=== PATIENT | female | born 1995 | race Caucasian/White ===

== ENCOUNTER 2025-05-16 12:17 | Outpatient (CLI) | payer MEDICAID, SELFPAY ==
--- OUTSIDE RECORDS SUMMARY | 2025-05-16 12:22 | XMS_ITS | Clinical Summary ---
[facility] Address [address] [place] [address] Care Team Providers Care Director Telehealth Name Role Phone Provider, No Known Primary Care Provider Unavail able Allergies No known active allergies Medications albuterol sulfate HFA 108 (90 Base) MCG/ACT inhalerIndicati ons:Acute viral syndrome Inhale 2 puffs Every 4 (Four) Hours As Needed for Wheezing or Shortness of Air. 18 g Active Active Problems No known active problems Family History Medical History Relation Name Comments No Known Problems Father No Known Problems Mother Relation Name Status Comments Father Alive Mother Alive Social History Tobacco Use Types Packs/Day Years Used Date Smoking Tobacco: Never Smokeless Tobacco: Never Tobacco Cessation:Counseling Given: No Alcohol Use Standard Drinks/Week Comments Yes 0 (1 standard drink = 0.6 oz pur e alcohol) socially AUDIT-C Answer Date Recorded Frequency of Alcohol Consumption Never 10/06/2018 Average Number of Drinks Not on file 019 Frequency of Binge Drinking Not on file 09/11 Abuse Screen Answer Date Recorded Unsafe at Home or Work/School Not on file Feels Threatened by Someone? Not on file Does Anyone Keep You from Co ntacting Others or Doint Things Outside the Home? Not on file 11/24/2023 Physical Sign of Abuse Present Not on file 0 11/24/2023 Housing Stability Answer Date Recorded Current Living Arrangements Not on file 02/2023 Potentially Unsafe Housing Conditions Not on haris e 03/20/2023 Family and Community Support Answer Chriss e Recorded Help with Day-to-Day Activities Not on file 03/20/2023 Lonely or Isolated Not on file 03/20/2023 Employment Answer Date Recorded Do you want help finding or keeping work or a gayla b? Not on file 03/20/2023 Disabilities Answer Date Recorded Concentrating, Remembering, or Making Decisions Difficulty Not on file 03/20/2023 Doing Errands Independently Difficulty Not on fi le 03/20/2023 Education Answer Date Recorded Help with school or training? Not on file Preferred Language Not on file 03/20/2023 Comments No Sex and Gender Information Value Date Recorded Sex Assigned at Not on file Legal Sex Female 11:07 AM EDT Gender Identity Not on file Sexual Orientation Not on file Last Filed Vital Signs Vital Sign Reading Time Taken Comments Blood Pressure 104/72 10/14/2023 10:19 PM EDT Pulse 101 10/14/2023 10:19 PM EDT Temperature 36.8 C (98.2 F) 10/14/2023 10:19 PM EDT Respiratory Rate 18 10/14/2023 10:19 PM EDT Oxygen Saturation 99% 10/14/2023 10:19 PM EDT Inhaled Oxygen Concentration - - Weight 56.7 kg (125 lb) 10/14/2023 10:19 PM EDT Height 160 cm (5' 3 ) 10/14/2023 10:19 PM EDT Body Mass Index 22.14 10/14/2023 10:19 PM EDT Plan of Treatment Health Maintenance Due Date Last Done Comments Annual Gynecologic Pelvic an d Breast Exam 1997 TDAP/TD VACCINES (1 - Tdap) 2016 ANNUAL PHYSICAL 08/06/2017 HEPATITIS C SCREENING 08/06/2017 INFLUENZA VACCINE 01/10/2025 09/04/2017 CHLAMYDIA SCREENING Discontinued 01/02/2022 Pneumococcal Vaccine 0-49 Aged Out No longer eligible based on patient's age to complete this topic Procedures Procedure Name Priority Date/Time Associated Diagnosis Comments CHLAMYDIA TRACHOMATIS, NEISSERIA GONORRHOEAE, PCR STAT 01/02/2022 11:43 PM EDT from Last 3 Months or Most Recently Relevant to Health Maintenance Results * Chlamydia trachomatis, Neisseria gonorrhoeae, PCR - Swab, Cervix (01/02/2022 11:43 PM EDT) Chlamydia trachomatis, MATT Negative Negative 01/05/2022 7:09 AM EDT [facility] Neisseria gonorrhoeae, MATT Negative Negative 01/05/2022 7:09 AM EDT [facility] Swab Cervix uteri structure / Unknown Collection / Unknown 01/02/2022 11:43 PM EDT 01/03/2022 12:12 AM EDT Narrative [facility] - 01/05/2022 7:09 AM EDT Performed at: 01 - Lab[address] [place] [id number] Economics Analyst: Keri Kapadia MD, Phone: [phone] Ignacio Torers Jr., MADDY MICROBIOLOGY - GENERA L ORDERABLES Final Result [facility] [address] [place] [address], [place] [phone] from Last 3 Months or Most Recently Relevant to Health Maintenance Insurance [facility] Care Teams Director Telehealth Relationship Specialty Start Date End Date Provider, No Known [facility] [place] [address] PCP - General 08/18/23
--- OUTSIDE RECORDS SUMMARY | 2025-05-16 12:22 | XMS_ITS | Clinical Summary ---
Author Organization [employer] ([place], [place], [place], [place], [place]) Address [address] [place] [address] Care Team Providers Care Esthetician/Spa Coordinator Name Role Phone Mabel Owens MD Primary Care Provider [phone] Allergies No known active allergies Medications lamoTRIgine (LaMICtal) 150 MG tablet Take 1 tablet (150 mg total) by mouth daily. Active Vyvanse 10 mg cap capsule Take 1 capsule (10 mg total) by mouth every morning. 03/25/2024 Active omeprazole (PriLOSEC) 20 MG capsule Take 1 capsule (20 mg total) by mouth daily. 03/20/2024 Active FLUoxetine (PROzac) 40 MG capsule Take 1 capsule (40 mg total) by mouth daily. 03/20/2024 Active Nextstellis 3 mg- 14.2 mg (28) tab Take 1 tablet by mouth daily. 03/25/2024 Active magnesium L-lactate (MAGTAB) 84 mg TbER Take 1 tablet (84 mg total) by mouth daily. Active azithromycin (ZITHROMAX) 250 MG tablet Take 2 on day one, take 1 on day two through 5. 6 tablet 04/02/2024 Active Active Problems Problem Noted Date Diagnosed Date Endometriosis of pelvic peritoneum 10/18/2022 Menorrhagia 10/18/2022 Severe dysmenorrhea 10/18/2022 Dyspareunia, female 10/18/2022 Pelvic pain in female 10/18/2022 Social History Tobacco Use Types Packs/Day Years Used Date Smoking Tobacco: Never Smokeless Tobacco: Never Tobacco Cessation:Counseling Given: Not Answered Comments:Vape in past Alcohol Use Standard Drinks/Week Comments Yes 2 (1 standard drink = 0.6 oz pur e alcohol) Food Insecurity Answer Date Recorded Food run out past 12 months Not on file 06/13 Food did not last past 12 months Not on file 07/01/2023 Employment Answer Date Recorded Help finding and keeping a job Not on file 0 07/01/2023 Family and Community Support Answer Chriss e Recorded Help with Day to Day Activities Not on file 07/01/2023 Feeling Lonely or Isolated Not on file 07/01 Educational Attainment Answer Date Rocky rded Speak language other than Persian at home Not on file 07/01/2023 Want help with school or training Not on file 07/01/2023 Substance Use Answer Date Recorded Used prescription meds for non-medical reasons N ot on file 07/01/2023 Used illegal drugs past 12 months Not on file 07/01/2023 Comments No Sex and Gender Information Value Date Recorded Sex Assigned at Not on file Legal Sex Female 1:44 PM CDT Gender Identity Not on file Sexual Orientation Not on file Last Filed Vital Signs Vital Sign Reading Time Taken Comments Blood Pressure 100/66 04/02/2024 1:13 PM EDT Pulse 85 04/02/2024 1:13 PM EDT Temperature 37 C (98.6 F) 04/02/2024 1:13 PM EDT Respiratory Rate 14 04/02/2024 1:13 PM EDT Oxygen Saturation 99% 04/02/2024 1:13 PM EDT Inhaled Oxygen Concentration - - Weight 63.5 kg (140 lb) 04/02/2024 1:13 PM EDT Height 157.5 cm (5' 2 ) 04/02/2024 1:13 PM EDT Body Mass Index 25.61 04/02/2024 1:13 PM EDT Plan of Treatment Health Maintenance Due Date Last Done Comments Depression Screening (12+) 2009 HIV Screening 2012 Hepatitis C Screening 2015 DTAP/TDAP/TD VACCINES (2 - Tdap) 2016 05/08/20 Pap Smear 2018 COVID-19 VACCINE (1 - 2023-2 5 season) 2025 Influenza Vaccine (#1) 2025 Tobacco Cessation Counseling and Screening (12+) 04/02/2025 04/02/2024 Pneumococcal Vaccine: 0-49 Years Aged Out No longer eligible based on patient's age to complete this topic Medical Devices Implanted Type Area Visual Educator Device Identifier Shelf Expiration Date Model / Serial / Lot Grafix Pl Prime 3x4 Cm [id number] - [id number] Implanted:Qty : 1 on 10/19/2022 by Tracie Jolly MD at [facility] IMPLANTS N/A: Pelvis [employer] 04/01/2024 [id number] / [id number] Insurance AETNA [facility] Advance Directives For more information, please contact: [phone] * Full Code (Latest Code Status on File) Date Activated Date Inactivated Comments 10/19/2022 9:55 AM 10/19/2022 4:10 PM * Full Code Date Activated Date Inactivated Comments 10/19/2022 8:22 AM 10/19/2022 9:55 AM Care Teams Esthetician/Spa Coordinator Relationship Specialty Start Date End Date Mabel Owens MD [address] [place] [id number] PCP - General Family Medicine 10/14/22
--- OUTSIDE RECORDS SUMMARY | 2025-05-16 12:22 | XMS_ITS | Referral Summary ---
Author Organization [employer] ([place], [place], [place], [place], [place]) Address [address] [place] [address] Care Team Providers Care Ultrasound Manager Name Role Phone Mabel Owens MD Primary Care Provider [phone] Allergies No known active allergies Medications lamoTRIgine [...] Date Rocky rded Speak language other than Italian at home Not on file 07/01/2023 Want [...] 04/02/2024 1:13 PM EDT Plan of Treatment Not on file Medical Devices Implanted Type Area Seed Mill Superintendent Device Identifier Shelf Expiration Date Model / Serial / Lot Grafix Pl Prime 3x4 Cm [id number] - [id number] Implanted:Qty : 1 on 10/19/2022 by Tracie Jolly MD at [facility] IMPLANTS N/A: Pelvis [employer] 04/01/2024 [id number] / [id number] Insurance AETNA [facility] Advance Directives For more information, please contact: [phone] * Full Code (Latest Code Status on File) Date Activated Date Inactivated Comments 10/19/2022 9:55 AM 10/19/2022 4:10 PM * Full Code Date Activated Date Inactivated Comments 10/19/2022 8:22 AM 10/19/2022 9:55 AM Care Teams Ultrasound Manager Relationship Specialty Start Date End Date Mabel Owens MD [address] [phone] PCP - General Family Medicine 10/14/22
--- OUTSIDE RECORDS SUMMARY | 2025-05-16 12:22 | XMS_ITS | Clinical Summary ---
Author Organization [facility] Address [address] [place] [address] Care Team Providers Care Rivet Tapping Machine Operator Name Role Phone Rambo Jean MD Primary Care Provider [phone] Immunizations Immunization Administration Dates Next Due Influenza, Unspecified 09/04/2017 Social History Tobacco Use Types Packs/Day Years Used Date Smoking Tobacco: Never Assessed Comments Unknown Sex and Gender Information Value Date Recorded Sex Assigned at Not on file Legal Sex Female 8:13 PM EDT Gender Identity Not on file Sexual Orientation Not on file Plan of Treatment Health Maintenance Due Date Last Done Comments [facility]-Depression Screening 1997 [facility]-/Child/Adol SDOH Screenings 1997 [facility]-Varicella Vaccines (1 of 2 - 13+ 2-dose series) 2010 [facility]- SDOH Screenings 2015 [facility]Y-Adult SDOH Screenings 2015 [facility]-DTaP,Tdap,and Td Vaccine s (1 - Tdap) 2016 [facility]-Hepatitis B Vaccines (1 of 3 - 19+ 3-dose series) 2016 [facility]-Pap Smear 2018 HPV Vaccines (1 - 3-dose SCD M series) 2024 [id number] Vaccine (1 - 20 25-26 season) 2025 [facility]-Influenza Vaccine (#1) 2025 09/04/2017 UKY-Zoster Vaccines (1 of 2) 2047 UKY-HIB Vaccines Aged Out No longer e ligible based on patient's age to complete this topic [facility]-Hepatitis A Vaccines Aged Out No longer eligible based on patient's age to complete this topic UKY-IPV Vaccines Aged Out No longer e ligible based on patient's age to complete this topic UKY-Pneumococcal Vaccine: Pediatrics (0 to 5 Years) and At-Risk Patients (6 to 49 Years) Aged Out No long er eligible based on patient's age to complete this topic [facility]Y-Rotavirus Vaccines Aged Out No lo nger eligible based on patient's age to complete this topic Care Teams Rivet Tapping Machine Operator Relationship Specialty Start Date End Date Rambo Jean MD [address] [place] [address] [place] [address] PCP - General 10/23/20
== END 2025-05-16 23:59 | disposition home or self-care (01) ==
LOC: LAB 12:21
PROVIDERS: PCP Family Medicine Geriatric Medicine; Visit Provider Nurse Practitioner Obstetrics & Gynecology
DX: Z34.90 Encounter for supervision of normal pregnancy, unspecified, unspecified trimester (principal); Z3A.00 Weeks of gestation of pregnancy not specified
CPT/HCPCS: 36415; 84144; 84702

== ENCOUNTER 2025-05-21 15:24 | Emergency (ER) | payer MEDICAID, SELFPAY ==
[2025-05-21 16:24] VITALS: BP 98/42; PULSE 88; RESP 16; TEMP 36.8; O2SAT 100; BMI 23.3
[2025-05-21 16:35] LABS: Microscopic, Urine URINE MICROSCOPIC (MICROSCOPIC)
[2025-05-21 16:41] LABS: Bilirubin,Urine Negative (Negative); Color,Urine YELLOW (Yellow); Glucose,Urine (UA) Negative (Negative); Ketones,Urine Negative (Negative); Leukocyte Esterase,Urine Negative (Negative); PH,Urine 6.0 (5.0-8.5); Protein,Urine Negative (Negative); Specific Gravity, Urine >= 1.030 (1.005-1.030); Urobilinogen,Urine 0.2 EU/dl (0.2)
--- NOTE | 2025-05-21 16:45 | US_ITS ---
PROCEDURE INFORMATION: Exam: US , Transvaginal Exam date and time: 05/21/2025 5:24 PM Age: 30 years old Clinical indication: Lmp or gestational age (in weeks): 6w3d; Other: Spotting; ; Additional info: Bleeding TECHNIQUE: Imaging protocol: Real-time transvaginal obstetrical ultrasound of the maternal pelvis with image documentation. Transvaginal imaging was used for better evaluation of the fetus, adnexa, and/or cervix. COMPARISON: No relevant prior studies available. FINDINGS: Gestation: Intrauterine gestation. heart rate: cardiac activity is present at 109 bpm. Placenta: Small subchorionic hemorrhage. BIOMETRY: [place] rump length (CRL): By crown-rump length, estimated gestational age is 6 weeks +3 days. MATERNAL: Right ovary/adnexa: The right ovary was not identified. Vasculature: Unremarkable left ovarian venous waveforms. IMPRESSION: 1. Small subchorionic hemorrhage. 2. Intrauterine with cardiac activity.
[2025-05-21 16:47] LABS: Hematocrit 39.2 % (37.0-47.0); Hemoglobin 13.0 g/dL (12.2-16.2); Immature Granulocytes % 0.3 %; Mean Corpuscular HGB Conc 33.2 g/dL (31.8-35.4); Mean Corpuscular Hemoglobin 29.1 pg (27.0-31.2); Mean Corpuscular Volume 87.9 fl (81-99); Nucleated Red Blood Cells % 0 %; Platelet Count 237 K/mm3 (142-424); Red Blood Count 4.46 M/mm3 (4.20-5.40); Red Cell Distribution Width-SD 41.3 fL; White Blood Count 6.6 K/mm3 (4.8-10.8)
[2025-05-21 17:07] LABS: Chloride 104 mmol/L (98-107)
[2025-05-21 17:08] LABS: Albumin Level 4.5 g/dl (3.5-5.0); Potassium 3.8 mmoL/L (3.5-5.1); Sodium 140 mmol/L (136-145)
[2025-05-21 17:10] LABS: Blood Urea Nitrogen 11 mg/dl (7-17); Creatinine Clearance Estimated 154 mL/min (50-200); Creatinine,Serum 0.50 mg/dl (0.52-1.04); Estimated Glomerular Filt Rate 147 ml/min (>60); GFR (African American) 178 ML/MIN (>60)
[2025-05-21 17:11] LABS: Alanine Aminotransferase 40 U/L (12-78); Albumin/Globulin Ratio 1.5 (1.1-1.8); Alkaline Phosphatase 64 U/L (38-126); Anion Gap 13.8 mEq/L (5-15); Aspartate Amino Transferase 46 U/L (14-36); Bilirubin,Total 0.7 mg/dl (0.2-1.3); Calcium 8.7 mg/dl (8.4-10.2); Carbon Dioxide 26 mmol/L (22.0-30.0); Globulin 3.1 g/dL (1.3-3.2); Total Protein,Serum 7.6 g/dl (6.3-8.2)
[2025-05-21 17:14] LABS: Glucose 46 mg/dl (74-100)
--- NOTE | 2025-05-21 17:19 | PC.NURSE ---
blood glucose 46 reported to
[2025-05-21 17:21] LABS: Bacteria,Urine 1+ /lpf; Squamous Epithelial Cell,Urine Occasional #/hpf (0-5)
--- NOTE | 2025-05-21 17:28 | PC.NURSE ---
i gave pt some food to eat due to hypoglycemia,
--- NOTE | 2025-05-21 18:04 | PC.NURSE ---
FSBS 119
--- NOTE | 2025-05-21 19:03 | HMH.EDGENADL ---
Discharge Plan Disposition Patient Disposition: Home, Self-Care Condition: Good Referrals Follow up/Referrals: Mabel Owens MD [Primary Care Provider, Medical] - See instructions Activity Restrictions/Add. Instructions Additional Instructions/Restrictions: Please follow up with OBGYN within 1 week. If your bleeding worsens and you have to start using pads/tampons, or you develop abdominal pain, fevers, or any other new or worsening symptoms please return. Clinical Impressions Clinical Impression: First trimester bleeding Subchorionic hemorrhage Qualifiers: Trimester: first trimester Qualified Code(s): O20.8 - Other hemorrhage in early Instructions Patient Instructions: DI for Urinary Tract Infection (UTI), DI for Urinary Tract Infection in Children Print Language Print Language: Kuwaiti Discharge ED Provider: Reji Heredia Adult HPI General Chief complaint: Urogenital-Female Stated complaint: 6 weeks spotting Time Seen by Provider: 05/21/25 16:37 Mode of Arrival: Ambulatory Source of Information: Patient Description of Symptoms (Recalled from ER Triage Doc. by RN): pt approx 6 weeks . started spotting this morning. was pink and now its dark brown. just when she wipes. had labs done on 05/15 History of Present Illness HPI narrative: This is a 30-year-old female patient who is presenting to the emergency department today for evaluation of first trimester bleeding. She states the bleeding began this morning upon waking. Initially this was described as light red spotting but now it is characterized as brown in color. She has had some mild abdominal cramping and bloating. She has not saturated any tampons or pads. She states the bleeding is only present when she wipes. She has established care with an CLINICAL APPEALS RN and is scheduled to see them in clinic again this upcoming week. Related Data Allergies Allergy/AdvReac Type Severity Reaction Status Date / Time No Known Allergies Allergy Verified 05/12/25 13:40 [facility] Disclaimer: The information contained in this section may have been updated after the patient was seen, as this information can be updated by other users. Social History Smoking Status: Never smoker alcohol intake: never current occupational status: employed Travel in the last 8 weeks?: None ROS Obtained: Yes Systems reviewed as appropriate & no additional complaints except as documented Physical Exam General General appearance: other (See MDM) Respiratory Respiratory exam: Present other (See MDM) Cardiovascular Cardiovascular exam: Present other (See MDM) Neurological Exam Neurological exam: Present other (See MDM) Medical Decision Making Medical Records Medical records reviewed: Yes I reviewed the patient's medical records. Screening: Per USPSTF and CDC recommendations, given the prevalence of disease in our region, it is our hospital?s policy to screen for HIV and viral Hepatitis for all patients aged 18 and over and those with ongoing risk factors. Dylan Inquiry Pt receiving controlled substance: No Dylan was queried for this patient: No Vital Signs: 05/21/25 16:24 Temperature 98.2 F Temperature Source Oral Pulse Rate [Right] 88 Respiratory Rate 16 Blood Pressure [Right Arm] 98/42 L Blood Pressure Mean [Right Arm] 60 02 Sat by Pulse Oximetry 100 Oxygen Delivery Method Room Air Lab Data Lab Results 05/21/25 16:30: Urine Color Yellow, Urine Appearance Clear, Urine pH 6.0, Ur Specific [place] >= 1.030, Urine Protein Negative, Urine Glucose (UA) Negative, Urine Ketones Negative, Urine Blood Trace-i, Urine Nitrate Negative, Urine Bilirubin Negative, Urine Urobilinogen 0.2, Ur Leukocyte Esterase Negative, Urine RBC None, Urine WBC 3-5, Ur Squamous Epith Cells Occasional, Urine Bacteria 1+ 05/21/25 16:32: WBC 6.6, RBC 4.46, Hgb 13.0, Hct 39.2, MCV 87.9, MCH 29.1, MCHC 33.2, RDW 12.8, Plt Count 237, MPV 10.1, Neut % (Auto) 66.2, Lymph % (Auto) 26.8, Lamb % (Auto) 5.6, Eos % (Auto) 0.8, Baso % (Auto) 0.3, Neut # (Auto) 4.4, Lymph # (Auto) 1.8, Lamb # (Auto) 0.4, Eos # (Auto) 0.1, Baso # (Auto) 0.0, Sodium 140, Potassium 3.8, Chloride 104, Carbon Dioxide 26, Anion Gap 13.8, BUN 11, Creatinine 0.50 L, Estimated Creat Clear 154, Estimated GFR 147, Est GFR ( Amer) 178, Glucose 46 L*, Calcium 8.7, Total Bilirubin 0.7, AST 46 H, ALT 40, Alkaline Phosphatase 64, Total Protein 7.6, Albumin 4.5, Globulin 3.1, Albumin/Globulin Ratio 1.5, HCG, Quant 35620 H 05/21/25 16:52: Blood Type O Positive 05/21/25 16:32 05/21/25 16:32 Orders (Tests/Meds): ORDERS Category Date Time Status Type and Screen Stat BBK 05/21/25 16:52 Results Complete Blood Count Auto Diff Stat Lab 05/21/25 16:32 Completed Comprehensive Metabolic Panel Stat Lab 05/21/25 16:32 Completed HCG,Quantitative Stat Lab 05/21/25 16:32 Completed Urinalysis-Acute [Urinalysis and Microscopic] Stat Lab 05/21/25 16:30 Completed US OB transvaginal Stat Ultrasound 05/21/25 16:45 Completed Medical Decision Narrative: In summary, this a 30-year-old female patient who is presenting to the emergency department today for evaluation of first trimester bleeding with abdominal cramping. Patient does not have any comorbidities that complicate her medical management or care. On initial evaluation of the patient they were resting comfortably in no acute distress and nontoxic in appearance. They are hemodynamically stable, saturating well room air, and are neurologically intact. On physical examination the patient has no abdominal tenderness to palpation. Differential diagnose include subchorionic hemorrhage, spontaneous , anemia, coagulopathy, among others Workup was initiated with hematologic labs as well as a quantitative hCG, urinalysis, and type and screen. We will also perform a transvaginal ultrasound. Labs were personally turbid by me and demonstrate no evidence of anemia. No leukocytosis. No electrolyte derangement acute kidney injury. The patient does have relative hypoglycemia that occurred after needlestick. We treated her with food and she did feel recovered. Aside from this, her hCG has increased appropriately from 05/16/2025 from 15,000 35,000. There is no evidence of urinary tract infection Transvaginal ultrasound shows an intrauterine with cardiac activity as well as a small subchorionic hemorrhage. This is likely the cause of her first administered bleeding. I asked that she follow-up with CLINICAL APPEALS RN within the next week and she currently has AN appointment scheduled for this. I have also asked her to return to the emergency department if she experiences worsening bleeding, saturation of pads or tampons, fevers, or any other new or worsening symptoms. This time all questions have been answered and all parties are agreeable with the decision to discharge home Critical Care Critical Care Time Critical Care Time: No
[2025-05-21 19:30] VITALS: BP 100/60; PULSE 88; RESP 20; TEMP 36.7; O2SAT 98
== END 2025-05-21 19:31 | disposition home or self-care (01) ==
PROVIDERS: Physician Assistant; Emergency Provider Student in an Organized Health Care Education/Training Program; PCP Family Medicine Geriatric Medicine
DX: O20.8 Other hemorrhage in early pregnancy (principal); O99.810 Abnormal glucose complicating pregnancy; E16.2 Hypoglycemia, unspecified; Z3A.01 Less than 8 weeks gestation of pregnancy
CPT/HCPCS: 36415; 76817; 80053; 81001; 84702; 85025; 86850; 99283; 99284

== ENCOUNTER 2025-05-28 10:00 | Outpatient (CLI) | payer MEDICAID, SELFPAY ==
[2025-05-28 10:24] LABS: Hematocrit 34.6 % (37.0-47.0); Hemoglobin 11.6 g/dL (12.2-16.2); Immature Granulocytes % 0.2 %; Mean Corpuscular HGB Conc 33.5 g/dL (31.8-35.4); Mean Corpuscular Hemoglobin 29.1 pg (27.0-31.2); Mean Corpuscular Volume 86.9 fl (81-99); Nucleated Red Blood Cells % 0 %; Platelet Count 216 K/mm3 (142-424); Red Blood Count 3.98 M/mm3 (4.20-5.40); Red Cell Distribution Width-SD 40.9 fL; White Blood Count 8.0 K/mm3 (4.8-10.8)
[2025-05-28 10:55] LABS: RPR W/RFX Titers Nonreactive (Nonreactive)
[2025-05-28 11:50] LABS: Hepatitis C Ab Qual. W/ RFX NEGATIVE (Negative)
--- OUTSIDE RECORDS SUMMARY | 2025-05-28 11:53 | XMS_ITS | Clinical Summary ---
[facility] Address [address] [place] [address] Care Team Providers Care Manager Photo Name Role Phone Provider, No Known Primary [...] 7:09 AM EDT Performed at: 01 - Lab[address] [id number] Security Installation Technician: Keri Kapadia MD, Phone: [phone] Ignacio Torres Jr., MADDY MICROBIOLOGY - GENERA L ORDERABLES Final Result [facility] [address] [place] [address], [place] [phone] from Last 3 Months or Most Recently Relevant to Health Maintenance Insurance [facility] Care Teams Manager Photo Relationship Specialty Start Date End Date Provider, No Known [facility] [place] [address] PCP - General 08/18/23
--- OUTSIDE RECORDS SUMMARY | 2025-05-28 11:53 | XMS_ITS | Clinical Summary ---
Author Organization [employer] ([place], [place], [place], [place], [place]) Address [address] [place] [address] Care Team Providers Care Binder Stripper Machine Name Role Phone Mabel Owens MD Primary Care Provider [phone] Allergies No known active allergies Medications lamoTRIgine [...] Date Rocky rded Speak language other than Brazilian at home Not on file 07/01/2023 Want [...] this topic Medical Devices Implanted Type Area Coconut Cooker Device Identifier Shelf Expiration Date Model / Serial / Lot Grafix Pl Prime 3x4 Cm [id number] - [id number] Implanted:Qty : 1 on 10/19/2022 by Tracie Jolly MD at [facility] IMPLANTS N/A: Pelvis [employer] 04/01/2024 [id number] / [id number] Insurance AETNA [facility] Advance Directives For more information, please contact: [phone] * Full Code (Latest Code Status on File) Date Activated Date Inactivated Comments 10/19/2022 9:55 AM 10/19/2022 4:10 PM * Full Code Date Activated Date Inactivated Comments 10/19/2022 8:22 AM 10/19/2022 9:55 AM Care Teams Binder Stripper Machine Relationship Specialty Start Date End Date Mabel Owens MD [address] [place] [phone] PCP - General Family Medicine 10/14/22
--- OUTSIDE RECORDS SUMMARY | 2025-05-28 11:53 | XMS_ITS | Referral Summary ---
Author Organization [employer] ([place], [place], [place], [place], [place]) Address [address] [place] [address] Care Team Providers Care Re Etcher Name Role Phone Mabel Owens MD Primary Care Provider [phone] Allergies No known active allergies Medications lamoTRIgine [...] Date Rocky rded Speak language other than Northern Irish at home Not on file 07/01/2023 Want [...] on file Medical Devices Implanted Type Area Welding Machine Operator Electron Beam Device Identifier Shelf Expiration Date Model / Serial / Lot Grafix Pl Prime 3x4 Cm [id number] Implanted:Qty : 1 on 10/19/2022 by Tracie Jolly MD at [facility] IMPLANTS N/A: Pelvis [employer] 04/01/2024 [id number] / [id number] Insurance AETNA [facility] Advance Directives For more information, please contact: [phone] * Full Code (Latest Code Status on File) Date Activated Date Inactivated Comments 10/19/2022 9:55 AM 10/19/2022 4:10 PM * Full Code Date Activated Date Inactivated Comments 10/19/2022 8:22 AM 10/19/2022 9:55 AM Care Teams Re Etcher Relationship Specialty Start Date End Date Mabel Owens MD [address] [phone] PCP - General Family Medicine 10/14/22
--- OUTSIDE RECORDS SUMMARY | 2025-05-28 11:53 | XMS_ITS | Clinical Summary ---
Author Organization [facility] Address [address] [place] [address] Care Team Providers Care Rn Postpartum Name Role Phone Rambo Jean MD Primary Care Provider [phone] Immunizations Immunization Administration Dates Next Due Influenza, [...] 19+ 3-dose series) 2016 [facility]-Pap Smear 2018 [id number] Vaccine (1 - 20 25-26 season) 2025 [facility]-Influenza Vaccine (#1) 2025 09/04/2017 [facility]-Zoster Vaccines (1 of 2) 2047 HPV Vaccines (No Doses Required) Completed [facility]-HIB Vaccines Aged Out No longer e [...] age to complete this topic Care Teams Rn Postpartum Relationship Specialty Start Date End Date Rambo Jean MD [address] [place] [address] [place] [address] PCP - General 10/23/20
[2025-05-29 03:48] LABS: Hepatitis B Surface Antigen Negative (Negative)
[2025-05-29 06:15] LABS: Rubella Antibodies, IgG <0.90 index (Immune >0.99)
== END 2025-05-28 23:59 | disposition home or self-care (01) ==
LOC: LAB 10:01
PROVIDERS: PCP Family Medicine Geriatric Medicine; Visit Provider Nurse Practitioner Obstetrics & Gynecology
DX: O20.8 Other hemorrhage in early pregnancy (principal); Z3A.00 Weeks of gestation of pregnancy not specified
CPT/HCPCS: 36415; 85025; 86592; 86762; 86787; 86803; 86850; 87340; 87389

== ENCOUNTER 2025-06-09 13:48 | Outpatient (CLI) | payer MEDICAID, SELFPAY ==
--- OUTSIDE RECORDS SUMMARY | 2025-06-09 13:50 | XMS_ITS | Clinical Summary ---
Author Organization Healthcare Address [address] [place] [address] Care Team Providers Care Barman Name Role Phone Rambo Jean MD Primary Care Provider [phone] Immunizations Immunization Administration Dates Next Due Influenza, [...] 19+ 3-dose series) 2016 UKY-Pap Smear 2018 [id number] Vaccine (1 - 20 25-26 season) 2025 [...] age to complete this topic Care Teams Barman Relationship Specialty [place] [id number] PCP - General 10/23/20
--- OUTSIDE RECORDS SUMMARY | 2025-06-09 13:50 | XMS_ITS | Clinical Summary ---
Author Organization [facility] Address [address] [place] [address] Care Team Providers Care Mis Manager Name Role Phone Provider, No Known Primary [...] 7:09 AM EDT Performed at: 01 - [facility] [place] [id number] Vault Person: Keri Kapadia MD, Phone: [phone] Ignacio Torres Jr., MADDY MICROBIOLOGY - GENERA L ORDERABLES Final Result [facility] [address] [place] [address], [place] [phone] from Last 3 Months or Most Recently Relevant to Health Maintenance Insurance [facility] Care Teams Mis Manager Relationship Specialty Start Date End Date Provider, No Known [facility] [place] [address] PCP - General 08/18/23
--- OUTSIDE RECORDS SUMMARY | 2025-06-09 13:50 | XMS_ITS | Referral Summary ---
Author Organization [employer] ([place], [place], [place], [place], [place]) Address [address] [place] [address] Care Team Providers Care Plycor Operator Name Role Phone Mabel Owens MD Primary Care Provider [phone] Allergies No known active allergies Medications lamoTRIgine [...] Date Rocky rded Speak language other than Filipino at home Not on file 07/01/2023 Want [...] on file Medical Devices Implanted Type Area Non Garment Sewing Machine Operator Device Identifier Shelf Expiration Date Model / Serial / Lot Grafix Pl Prime 3x4 Cm [id number] Implanted:Qty : 1 on 10/19/2022 by Tracie Jolly MD at [facility] IMPLANTS N/A: Pelvis [employer] 04/01/2024 [id number] / [id number] Insurance [employer] [facility] Advance Directives For more information, please contact: [phone] * Full Code (Latest Code Status on File) Date Activated Date Inactivated Comments 10/19/2022 9:55 AM 10/19/2022 4:10 PM * Full Code Date Activated Date Inactivated Comments 10/19/2022 8:22 AM 10/19/2022 9:55 AM Care Teams Plycor Operator Relationship Specialty Start Date End Date Mabel Owens MD [id number] [address] PCP - General Family Medicine 10/14/22
--- OUTSIDE RECORDS SUMMARY | 2025-06-09 13:50 | XMS_ITS | Clinical Summary ---
Author Organization [employer] ([place], [place], [place], [place], [place]) Address [address] [place] [address] Care Team Providers Care Bowling Alley Refinisher Name Role Phone Mabel Owens MD Primary Care Provider [phone] Allergies No known active allergies Medications lamoTRIgine [...] Date Rocky rded Speak language other than Guyanese at home Not on file 07/01/2023 Want [...] DTAP/TDAP/TD VACCINES (2 - Tdap) 2016 05/08/20 Pneumococcal Vaccine: 0-49 Years (1 of 2 - PCV) 2015 Pap Smear 2018 COVID-19 VACCINE (1 - 2024-25 season) 2025 Influenza Vaccine (#1) 2025 Tobacco Cessation Counseling and Screening (12+) 04/0204/02/2024 Medical Devices Implanted Type Area Boxing And Pressing Supervisor Device Identifier Shelf Expiration Date Model / Serial / Lot Antonfix Pl Prime 3x4 Cm [id number] - [id number] Implanted:Qty : 1 on 10/19/2022 by Tracie Jolly MD at [facility] IMPLANTS N/A: Pelvis [employer] 04/01/2024 [id number] / [id number] Insurance [employer] [facility] Advance Directives For more information, please contact: [phone] * Full Code (Latest Code Status on File) Date Activated Date Inactivated Comments 10/19/2022 9:55 AM 10/19/2022 4:10 PM * Full Code Date Activated Date Inactivated Comments 10/19/2022 8:22 AM 10/19/2022 9:55 AM Care Teams Bowling Alley Refinisher Relationship Specialty Start Date End Date Mabel Owens MD [address] [address] PCP - General Family Medicine 10/14/22
--- NOTE | 2025-06-09 14:00 | US_ITS ---
PROCEDURE: US OB TRANSVAGINAL CLINICAL INDICATION: Viability and check dates COMPARISON: US US OB TRANSVAGINAL from 05/21/2025 FINDINGS: Transvaginal sonographic images of the pelvis were obtained. From her last menstrual period she is 9weeks 1day. An intrauterine gestational sac is present with a pole with a crown-rump length of 2.32cm This correlates to a gestational age of 9weeks 1day. RAVINDER 01/11/2026 heart tones are present with an FHR of 174bpm. Yolk sac is noted. The yolk sac measures 6.6mm. The right ovary is not seen. The left ovary is seen and appears normal. There is a 1.9 cm corpus luteum in the left ovary. There is no fluid in the cul-de-sac. IMPRESSION: 1. Viable embryo within the uterine cavity. Heart rate activity is seen. 2. The size and dates are congruent and RAVINDER will remain 01/11/2026 3. The left ovary is seen and contains a corpus luteum. The right ovary is not visualized. 4. No fluid in the cul-de-sac. Dictated by: Irving Sims MD 06/10/2025 10:49 Irving Sims MD in OV 06/10/2025 10:49
== END 2025-06-09 23:59 | disposition home or self-care (01) ==
LOC: RAD 13:48
PROVIDERS: PCP Family Medicine Geriatric Medicine; Visit Provider Nurse Practitioner Obstetrics & Gynecology
DX: O34.81 Maternal care for other abnormalities of pelvic organs, first trimester (principal); O20.8 Other hemorrhage in early pregnancy; N83.12 Corpus luteum cyst of left ovary; Z3A.09 9 weeks gestation of pregnancy
CPT/HCPCS: 76817